=== PATIENT | male | born 1990 | race Caucasian/White ===

== ENCOUNTER 2018-12-11 03:36 | Emergency (ER) | payer OTHER ==
[2018-12-11 04:19] LABS: ADD UMIC NO; UR ASCORBIC ACID NEGATIVE (NEGATIVE); UR BILIRUBIN (Dip) NEGATIVE (NEGATIVE); UR BLOOD (Dip) NEGATIVE (NEGATIVE); UR CLARITY CLEAR (CLEAR); UR COLOR YELLOW (YELLOW); UR GLUCOSE (Dip) NEGATIVE (NEGATIVE); UR KETONES (Dip) NEGATIVE (NEGATIVE); UR LEUKOCYTE ESTERASE (Dip) NEGATIVE Leu/ul (NEGATIVE); UR NITRITE (Dip) NEGATIVE (NEGATIVE); UR SPECIFIC GRAVITY (Dip) > 1.060 (1.003-1.030); UR TOTAL PROTEIN (Dip) NEGATIVE (NEGATIVE); UR UROBILINOGEN (Dip) NEGATIVE (NEGATIVE)
[2018-12-11] MEDS: HYDROCODONE/APAP (10/325) TAB PO (04:33)
[2018-12-11] MEDS: ONDANSETRON (ODT) 4 MG TAB ODT (05:35)
[2018-12-11] MEDS: morphine 4 MG/ML VIAL IM (05:36)
[2018-12-11] MEDS: CIPROFLOXACIN 500 MG TAB PO (06:09)
[2018-12-11] MEDS: DOXYCYCLINE 100 MG TAB PO (06:09)
== END 2018-12-11 06:23 | disposition home or self-care (01) ==
LOC: E/R 03:36
DX: N45.1 Epididymitis (principal)
CPT/HCPCS: 76870; 81003; 99284-25